=== PATIENT | male | born 1990 | race African-American/Black ===

== ENCOUNTER 2021-11-27 10:23 | Emergency (ER) | payer MEDICAID ==
[~2021-11-27] VITALS: Ht 177.8 cm; Wt 82.0 kg
[2021-11-27] MEDS ORDERED: IBUPROFEN 600MG TABLET PO ONE (11:00)
[2021-11-27] MEDS ORDERED: TETANUS, DIPHTHERIA, PERTUSSIS VAC/PF 0.5ML (>10YR OLD) IM ONE (11:00)
[2021-11-27 11:03] VITALS: BP 122/80
[2021-11-27] MEDS ORDERED: IBUP-2029 PO (11:13)
[2021-11-27] MEDS ORDERED: AMOX1TAB16 PO (11:13)
== END 2021-11-27 11:47 | disposition home or self-care (01) ==
LOC: ER 10:23
DX: S81.851A Open bite, right lower leg, initial encounter (principal); W54.0XXA Bitten by dog, initial encounter; Y93.89 Activity, other specified; Y92.89 Other specified places as the place of occurrence of the external cause
CPT/HCPCS: 90471; 90715; 99283